=== PATIENT | male | born 1965 | race Caucasian/White ===

== ENCOUNTER 2017-04-28 14:29 | Emergency (ER) | payer BC, OTHER ==
[2017-04-28] MEDS ORDERED: LET GEL TOPICAL 1 EA SYR TP ONE (14:40)
[2017-04-28 14:46] VITALS: O2SAT 96
--- NOTE | 2017-04-28 15:27 | EDPHY ---
H & P Time Seen by Provider: 04/28/17 15:09 HPI/ROS: CHIEF COMPLAINT: Finger laceration History by patient HISTORY OF PRESENT ILLNESS: 51-year-old otherwise healthy man presents complaining of a laceration to his right finger due to a electric hedge cutter. He was wearing gloves at the time of injury. He denies any other injury. His last tetanus shot was within 10 years. Patient works as a database software technician. REVIEW OF SYSTEMS: As in HPI, and all other systems reviewed and are negative Smoking Status: Never smoked Physical Exam: General Appearance: Alert and no distress. Eyes: Pupils equal and round no injection. Musculoskeletal: Neck is supple and nontender. Extremities: Right index finger with 1.5 cm laceration on medial side of distal finger, the below the nail, distal sensation intact, full range of motion against resistance, distal cap refill less than 2 seconds. Skin: No rashes or lesions other than as above. [ ] Constitutional: Initial Vital Signs Temperature (C) 36.9 C 04/28/17 14:43 Heart Rate 70 04/28/17 14:43 Respiratory Rate 16 04/28/17 14:43 Blood Pressure 120/77 04/28/17 14:43 O2 Sat (%) 96 04/28/17 14:43 O2 Delivery Mode Room Air Allergies/Adverse Reactions: No Known Allergies Allergy (Unverified 04/28/17 14:43) Home Medications: Medication Instructions Recorded NK [No Known Home Meds] 04/28/17 MDM/Departure - MDM Procedures: Procedure: Laceration repair. Verbal consent was obtained from the patient. The 1.5 cm laceration on the right index finger was anesthetized in the usual fashion with a digital block with 2% lidocaine. The wound was irrigated, draped and explored to its base with a gloved finger. There were no deep structures involved. No tendon injury was identified. The wound was repaired with 4 times 5-0 Prolene interrupted sutures. The wound repair was uncomplicated. The procedure was performed by myself. Medications Given: Discontinued Medications Tetracaine/Epinephrine/Lidocaine (Let Gel Topical) 1 ea TP EDNOW ONE Stop: 04/28/17 14:41 Last Admin: 04/28/17 14:44 Dose: 1 ea ED Course/Re-evaluation: 51-year-old man presents with finger laceration to his right hand. Wound was closed without complication. We discussed home care and signs and symptoms of infection. - Depart Disposition: Home, Routine, Self-Care Condition: Good Instructions: Laceration (ED) Additional Instructions: You were seen by Dr. Sri Mae today. Keep the wound dressing on for the next 24 hours. After that keep the wound covered with Aquaphor and Band-Aid. Wash the wound with soap and water but do not soak or submerge it. Watch for signs and symptoms of infection including but not limited to pus draining from the wound, increased redness or pain, or fever. Have your sutures removed in 7-10 days. Return for any worsening or new concerns. Referrals: Doctor Not,On Staff, MD [Primary Care Provider] - As per Instructions
[2017-05-06 18:59] VITALS: BP 117/67; PULSE 64; RESP 18; TEMP 97.9
== END 2017-04-28 16:15 | disposition home or self-care (01) ==
LOC: CED 14:29
PROC: 0HQHXZZ Repair Right Upper Leg Skin, External Approach (ICD-10-PCS; principal; 2017-04-28)
DX: S61.210A Laceration without foreign body of right index finger without damage to nail, initial encounter (principal); W29.3XXA Contact with powered garden and outdoor hand tools and machinery, initial encounter